=== PATIENT | male | born 1980 | race Hispanic/Latino ===

== ENCOUNTER 2022-04-10 09:19 | Outpatient (CLI) | payer BC ==
[~2022-04-10 09:19] MED LIST: Iopamidol 300 61% 100 ML VIAL FS ONE
== END 2022-04-10 09:20 | disposition home or self-care (01) ==
LOC: CSHCT 09:19
PROVIDERS: ATTEND Family Medicine
DX: R19.02 Left upper quadrant abdominal swelling, mass and lump (principal)
CPT/HCPCS: 74178